=== PATIENT | female | born 1955 | race Caucasian/White ===

== ENCOUNTER 2022-11-22 15:42 | Emergency (ER) | payer MEDICARE, OTHER, SELFPAY ==
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
[2022-11-22 15:42] VITALS: BP 123/63; PULSE 91; RESP 19; TEMP 36.4; O2SAT 99
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
[2022-11-22] MEDS: HYDROcodone/acetaminophen (*CRX) 5-325 MG TABLET 1 TAB PO (17:34)
[2022-11-22] MEDS: TETANUS,DIPHTHERIA,AC PERTUSSIS ADULT (0.5 ML) BOOSTRIX IM (17:34)
[2022-11-22 18:03] VITALS: BP 116/78; PULSE 80; RESP 19; O2SAT 99
== END 2022-11-22 18:05 | disposition home or self-care (01) ==
PROVIDERS: Emergency Provider Physician Assistant
DX: S40.021A Contusion of right upper arm, initial encounter (principal); Z23 Encounter for immunization; W20.8XXA Other cause of strike by thrown, projected or falling object, initial encounter
CPT/HCPCS: 73060; 90471; 90715; 99283; A9270